=== PATIENT | male | born 1965 | race Caucasian/White ===

== ENCOUNTER 2016-12-12 21:58 | Emergency (ER) | payer MEDICARE ==
[~2016-12-12] VITALS: Ht 180.3 cm; Wt 74.8 kg
[2016-12-12 22:01] VITALS: BP 121/68; PULSE 62; RESP 16; TEMP 98.2; O2SAT 97
--- NOTE | 2016-12-12 22:32 | PD ---
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 Pt states he has been feeling a lump in his left posterior scalp for a few days that is tender. Pt also states he has been having left sided headache for almost a month. Starts in his left neck and up left occiput. Also with nausea for a few days. Pt also with clear left ear drainage for 6 months. Denies any fever, trauma, fall, anticoagulation , chest pain, sob, vomiting, abdominal pain, focal weakness or numbness or visual changes. States he had similar headache when he was diagnosed with the cholesteatoma a few years ago and is from [place] and will try to follow up with his ENT there this week. PFSH Social History Tobacco Use: No Allergies-Medications (Allergen,Severity, Reaction): Coded Allergies: Fentanyl (Verified Allergy, Unknown, Psychosis, 12/12/16) Reported Meds & Prescriptions Reported Meds & Active Scripts Active Acetaminophen Extra Strength (Acetaminophen) 500 Mg Tab 500 Mg PO Q6H PRN Review of Systems Except as stated in HPI: all other systems reviewed are Neg Physical Exam Narrative GENERAL: 51yo M not in distress. SKIN: Focused skin assessment warm/dry. HEAD: I do feel a small 1cm induration that is circular in left posterior scalp. It is not erythematous or fluctuant. Has mild ttp. EYES: Pupils equal and round. No scleral icterus. No injection or drainage. ENT: Left ear: +clear discharge. yellow coloration behind TM. NECK: Trachea midline. No JVD. CARDIOVASCULAR: Regular rate and rhythm. No murmur appreciated. RESPIRATORY: No accessory muscle use. Clear to auscultation. Breath sounds equal bilaterally. GASTROINTESTINAL: Abdomen soft, non-tender, nondistended. MUSCULOSKELETAL: No obvious deformities. No clubbing. No cyanosis. No edema. NEUROLOGICAL: Awake and alert. No obvious cranial nerve deficits. Motor grossly within normal limits. Normal speech. PSYCHIATRIC: Appropriate mood and affect; insight and judgment normal. Data Data Last Documented VS Vital Signs Date Time Temp Pulse Resp B/P Pulse Ox O2 Delivery O2 Flow Rate FiO2 12/13/16 00:11 98.3 91 18 118/75 98 12/12/16 23:[address] Brain W/O Iv Contrast(Rout) (12/12/16 ) Ondansetron Inj (Zofran Inj) (12/12/16 23:00) Sodium Chlor 0.9% 1000 Ml Inj (Ns 1000 M (12/12/16 23:00) Ketorolac Inj (Toradol Inj) (12/13/16 00:00) MDM Medical Decision Making Medical Screen Exam Complete: Yes Emergency Medical Condition: Yes Differential Diagnosis Lipoma vs. cyst vs. tension headache vs. migraine headache Narrative Course 51yo M with headache for almost a month. Pt has a scalp cyst that does not appear infected. CT brain showed post surgical changes involving the left mastoid/external auditory canal and mild mucoperiosteal thickening of ethmoid sinuses. Pt given zofran, NS IVF and toradol. Pt reevaluated at bedside and nausea and headache has resolved. Pt has no focal neurologic deficit and is going to follow up with his own ENT this week. Return precautions given. Diagnosis Primary Impression: Headache Qualified Code: G44.229 - Chronic tension-type headache, not intractable Patient Instructions: General Instructions Departure Forms: Tests/Procedures Additional Instructions: Please follow up with your ENT this week. Please also follow up with your PMD as outpatient. Return to the ED if symptoms worsen. Med/Other Pt SpecificInfo: Prescription(s) given Scripts Acetaminophen (Acetaminophen Extra Strength)500 Mg Hul640 Mg PO Q6H PRN (PAIN SCALE 1 TO 4) #20 TAB Ref 0 Prov:GildardoKina DO 12/13/16 Disposition: 01 DISCHARGE HOME Condition: Stable Kina Ewing DO December 12, 2016 22:32
[2016-12-12] MEDS ORDERED: ONDANSETRON HCL 4 MG/2 ML VIAL IV PUSH ONE (23:00)
[2016-12-12] MEDS ORDERED: SODIUM CHLOR 0.9% 1000 ML INJ 1,000 ML IV ONE (23:00)
[2016-12-12 23:15] VITALS: BP 99/62; PULSE 74; RESP 18; O2SAT 95
--- NOTE | 2016-12-12 23:18 | RADHPO ---
EXAM DATE/TIME: 12/12/2016 22:51 [facility] COMPARISON: No previous studies available for comparison. INDICATIONS : Cephalgia. Lump left occipital scalp. RADIATION DOSE: 64.59 CTDIvol (mGy) MEDICAL HISTORY : None SURGICAL HISTORY : None. ENCOUNTER: Initial ACUITY: 2 days PAIN SCALE: 8/10 LOCATION: Left occipital TECHNIQUE: Multiple contiguous axial images were obtained of the head. Using automated exposure control and adj ustment of the mA and/or kV according to patient size, radiation dose was kept as low as reasonably a chievable to obtain optimal diagnostic quality images. FINDINGS: There is no evidence for intracranial hemorrhage, mass effect, mass lesions, edema, or extra-axial fl uid collections. The visualized bony structures appear intact. The ventricles are normal size for t he patient's age. There are no signs of acute infarction for technique. There are post surgical garcia ges involving the left mastoid air cells and external auditory canal. There is mild mucoperiosteal th ickening within some of the eithmoid air cells. CONCLUSION: Postsurgical changes involving the left mastoid/external auditory canal and mild mucoperi osteal thickening of eithmoid sinuses. Destiny Tang MD on December 12, 2016 at 23:15 Board Certified Radiologist. This report was verified electronically.
[2016-12-13] MEDS ORDERED: KETOROLAC TROMETHAMINE 30 MG/ML (IVP) VIAL IV PUSH ONE
[2016-12-13] MEDS ORDERED: ACET500T36 PO (00:09)
[2016-12-13 00:11] VITALS: BP 118/75; TEMP 98.3
== END 2016-12-13 00:28 | disposition home or self-care (01) ==
LOC: PHED 21:58
DX: R51 Headache (principal); R11.0 Nausea
CPT/HCPCS: 70450; 96361; 96374; 96375; 99285; J1885; J2405; J7030